=== PATIENT | female | born 1980 | race Caucasian/White ===

== ENCOUNTER 2017-02-14 12:09 | Day surgery (SDC) | payer OTHER ==
[2017-02-14] MEDS ORDERED: NALOXONE HCL INJ/PF 0.4 MG/1 ML SDV ONE (12:29)
[2017-02-14] MEDS ORDERED: ONDANSETRON HCL INJ/PF 4 MG/2 ML SDV ONE (12:29)
[2017-02-14] MEDS ORDERED: PROMETHAZINE HCL INJ 25 MG/1 ML VIAL ONE (12:29)
[2017-02-14] MEDS ORDERED: GLUCAGON,HUMAN RECOMB 1 MG INJ ONE (12:30)
[2017-02-14] MEDS ORDERED: EPINEPHRINE INJ 1 MG/10 ML DISP.SYRIN ONE (12:30)
[2017-02-14] MEDS ORDERED: FLUMAZENIL INJ 0.5 MG/5 ML VIAL IV ONE (12:30)
[2017-02-14] MEDS: MIDAZOLAM 2 MG/2 ML INJ ONE ×4 (12:52→13:04)
[2017-02-14] MEDS: FENTANYL CITRATE INJ/PF 100 MCG/2 ML AMPUL ONE ×3 (12:54→13:02)
[2017-02-14] MEDS: DIPHENHYDRAMINE HCL 50 MG/ML VIAL ONE ×2 (13:06→13:08)
[2017-02-14] MEDS ORDERED: MIDAZOLAM 2 MG/2 ML INJ ONE (13:44)
--- NOTE | 2017-02-14 13:47 | Operative Report ---
Operative Report DATE OF SURGERY: 02/14/17 Operative Report: The risks benefits and alternatives of the procedure explained to the patient in detail and informed consent is obtained that GIF Olympus video scope was inserted into the patient's mouth and hypopharynx the esophagus is identified intubated and insufflated the scope was then advanced through the esophagus stomach and duodenum retroflexion maneuver is done the esophagus stomach and first and second portions of the duodenum examined PREOPERATIVE DIAGNOSIS: Epigastric pain, nausea vomiting, previous episode of possible hematemesis. POSTOPERATIVE DIAGNOSIS: Gastric erosions status post biopsy rule out Helicobacter pylori OPERATION: EGD with biopsy SURGEON: ROSIE SMITH ANESTHESIA: Moderate Sedation - 200 mg of fentanyl, 8 mg of Versed, 50 mg of Benadryl. Conscious sedation monitoring time 30 minutes TISSUE REMOVED OR ALTERED: Gastric specimen obtained rule out Helicobacter pylori COMPLICATIONS: None. ESTIMATED BLOOD LOSS: none. INTRAOPERATIVE FINDINGS: Esophagus normal. First and second portion of the small intestine normal PROCEDURE: Patient tolerated the procedure well. No immediate postprocedure complications are noted. Patient is discharged in good condition. Discharge date 02/14/2017. Discharge diet: Regular. Discharge activity: Regular. 2-3 week polyp to discuss findings Patient is instructed to call the office or proceed to the emergency room should there be any further problems or questions We'll await on biopsies
[2017-02-14 14:34] VITALS: BP 109/87
== END 2017-02-14 14:30 | disposition home or self-care (01) ==
LOC: END 12:09
PROVIDERS: ATTEND Internal Medicine Gastroenterology
PROC: 0DB68ZX Excision of Stomach, Via Natural or Artificial Opening Endoscopic, Diagnostic (ICD-10-PCS; principal; 2017-02-14 12:30)
DX: K29.50 Unspecified chronic gastritis without bleeding (principal); Z79.899 Other long term (current) drug therapy; Z79.84 Long term (current) use of oral hypoglycemic drugs
CPT/HCPCS: 43239; 88342 ×2; 88305 ×2; J2250; J1200; J3010; J1610; J0171; J2310; J2405; J2550; J3490